=== PATIENT | female | born 1935 | race Caucasian/White ===

== ENCOUNTER 2022-03-21 23:13 | Observation (INO) ==
[2022-03-22] MEDS ORDERED: ACETAMINOPHEN 325 MG TABLET PO PRN (01:34)
[2022-03-22] MEDS ORDERED: hydrALAZINE 20 MG/1 ML VIAL IV PRN (01:34)
[2022-03-22] MEDS ORDERED: ONDANSETRON 4 MG/2 ML VIAL IV PRN (01:34)
[2022-03-22] MEDS ORDERED: INFLUENZA VIRUS VACCINE 0.5 ML SYRINGE IM ONE (02:05)
[2022-03-22] MEDS: LEVOTHYROXINE 150 MCG TABLET PO SCH (05:50)
[2022-03-22 07:49] LABS: Basophils % 0.4 % (0.0-0.8); Eosinophils # 0.2 10*3/uL (0.0-0.87); Eosinophils % 3.5 % (0.00-10.9); Hematocrit 37.8 VOL% (35.7-47.0); Hemoglobin 12.1 GM/DL (12.0-16.0); Immature Granulocytes % 0.3 %; Immature Granulocytes Absolute 0.02 #; Lymphocytes # 3.3 10*3/uL (1.4-4.0); Lymphocytes % 48.3 % (21.3-54.2); Mean Corpuscular Volume 98.2 FL (87-102); Mean Platelet Volume 11.2 FL (9.6-12.0); Monocytes # 0.5 10*3/uL (0.11-0.8); Monocytes % 7.1 % (1.7-12.7); Neutrophils % 40.4 % (38.7-73.9); Platelet Count 197 T/CUMM (130-400); Red Blood Count 3.85 MC/CUMM (3.8-5.5); Red Cell Distribution Width 12.6 % (9.3-17.3); White Blood Count 6.9 T/CUMM (4-12)
[2022-03-22] MEDS: ALBUTEROL 2.5 MG/3 ML NEB RESP TX SCH ×3 (08:00→19:35)
[2022-03-22 08:11] LABS: Risk Ratio 4.09; VLDL Cholesterol 32.2 MG/DL
[2022-03-22 08:20] LABS: Bilirubin,Total 0.6 MG/DL (0.20-1.00); Calcium 9.3 MG/DL (8.5-10.1); Osmolality,Calculated 289.7 MOS/KG (273-304); Potassium 4.1 MMOL/L (3.5-5.1); Total Protein 5.7 G/DL (6.4-8.2)
[2022-03-22] MEDS ORDERED: PANTOPRAZOLE 40 MG TABLET PO SCH (09:00)
[2022-03-22] MEDS ORDERED: ERGOCALCIFEROL 50,000 UNIT CAPSULE PO SCH (09:00)
[2022-03-22] MEDS ORDERED: AZITHROMYCIN 250 MG TABLET PO SCH (09:00)
[2022-03-22] MEDS: OMEGA 3 ACID ETHYL ESTERS 1 GM CAPSULE PO SCH (10:16)
[2022-03-22] MEDS: METOPROLOL TARTRATE 25 MG TABLET PO SCH ×2 (10:16→21:04)
[2022-03-22] MEDS: ASPIRIN EC 81 MG TABLET PO SCH ×2 (10:16→12:32)
[2022-03-22] MEDS: BETHANECHOL 10 MG TABLET PO SCH ×2 (10:17→21:04)
[2022-03-22] MEDS: ENOXAPARIN 60 MG/0.6 ML SYRINGE SUBCUT SCH ×2 (10:17→21:03)
[2022-03-22] MEDS: PANTOPRAZOLE 40 MG TABLET PO SCH (10:17)
[2022-03-22] MEDS: predniSONE 5 MG TABLET PO SCH (10:17)
[2022-03-22] MEDS ORDERED: HEPARIN/NACL 0.9% 2 UNITS/ML 3,000 UNIT/1,500 ML BAG IV ONE (12:46)
[2022-03-22] MEDS ORDERED: MIDAZOLAM 2 MG/2 ML VIAL ONE (12:47)
[2022-03-22] MEDS ORDERED: fentaNYL 100 MCG/2 ML VIAL ONE (12:47)
[2022-03-22] MEDS ORDERED: HEPARIN 5,000 UNIT/1 ML VIAL ONE (13:15)
[2022-03-22] MEDS ORDERED: NITROGLYCERIN DRIP 50 MG/250 ML BOTTLE IV ONE (13:18)
[2022-03-22] MEDS ORDERED: CLOPIDOGREL 300 MG TABLET ONE (13:20)
[2022-03-22] MEDS ORDERED: PRAMIPEXOLE 0.25 MG TABLET PO SCH (21:00)
[2022-03-22] MEDS ORDERED: DULoxetine 30 MG CAPSULE PO SCH (21:00)
[2022-03-22] MEDS ORDERED: DONEPEZIL 5 MG TABLET PO SCH (21:00)
[2022-03-22] MEDS ORDERED: MONTELUKAST 10 MG TABLET PO SCH (21:00)
[2022-03-23] MEDS: ALBUTEROL 2.5 MG/3 ML NEB RESP TX SCH ×2 (00:36→07:06)
[2022-03-23] MEDS: LEVOTHYROXINE 150 MCG TABLET PO SCH (05:46)
[2022-03-23 08:01] VITALS: BP 130/52
[2022-03-23 08:12] LABS: Basophils % 0.3 % (0.0-0.8); Eosinophils # 0.2 10*3/uL (0.0-0.87); Eosinophils % 2.3 % (0.00-10.9); Hematocrit 40.2 VOL% (35.7-47.0); Hemoglobin 13.1 GM/DL (12.0-16.0); Immature Granulocytes % 0.4 %; Immature Granulocytes Absolute 0.04 #; Lymphocytes # 3.5 10*3/uL (1.4-4.0); Lymphocytes % 35.8 % (21.3-54.2); Mean Corpuscular HGB Conc 32.6 GM/DL (32-36); Mean Corpuscular Volume 99.3 FL (87-102); Monocytes # 0.7 10*3/uL (0.11-0.8); Monocytes % 7.2 % (1.7-12.7); Platelet Count 237 T/CUMM (130-400); Red Blood Count 4.05 MC/CUMM (3.8-5.5); Red Cell Distribution Width 12.4 % (9.3-17.3); White Blood Count 9.7 T/CUMM (4-12)
[2022-03-23 08:33] LABS: Calcium 9.6 MG/DL (8.5-10.1); Osmolality,Calculated 286.1 MOS/KG (273-304); Potassium 4.5 MMOL/L (3.5-5.1)
[2022-03-23] MEDS: predniSONE 5 MG TABLET PO SCH (09:00)
[2022-03-23] MEDS: PANTOPRAZOLE 40 MG TABLET PO SCH (09:00)
[2022-03-23] MEDS: METOPROLOL TARTRATE 25 MG TABLET PO SCH (09:00)
[2022-03-23] MEDS: ASPIRIN EC 81 MG TABLET PO SCH (09:00)
[2022-03-23] MEDS: OMEGA 3 ACID ETHYL ESTERS 1 GM CAPSULE PO SCH (09:00)
[2022-03-23] MEDS: ENOXAPARIN 60 MG/0.6 ML SYRINGE SUBCUT SCH (09:00)
[2022-03-23] MEDS: BETHANECHOL 10 MG TABLET PO SCH (09:00)
[2022-03-23] MEDS ORDERED: CLOPIDOGREL 75 MG TABLET PO SCH (09:00)
== END 2022-03-23 10:55 | disposition home or self-care (01) ==
LOC: INTOOBSV 03-22 01:14 → SUATTDRO 03-22 01:14 → N.TELES 03-22 01:14
PROVIDERS: ADMIT Internal Medicine; ATTEND Internal Medicine
PROC: CLCCHCL (ICD-10-PCS; 2022-03-22 13:15)